=== PATIENT | male | born 1950 | race African-American/Black ===

== ENCOUNTER 2018-02-15 05:27 | Inpatient (IN) ==
[2018-02-14 11:34] LABS: Basophils % 0.5 % (0.0-0.8); Eosinophils # 0.3 10*3/uL (0.0-0.87); Eosinophils % 4.3 % (0.00-10.9); Hematocrit 44.1 VOL% (42.0-52.0); Hemoglobin 14.6 GM/DL (14.0-18.0); Immature Granulocytes % 0.7 %; Immature Granulocytes Absolute 0.04 #; Lymphocytes % 32.8 % (21.2-54.2); Mean Corpuscular HGB Conc 33.1 GM/DL (32-36); Mean Corpuscular Hemoglobin 29 PG (27-34); Mean Corpuscular Volume 88.4 FL (87-102); Mean Platelet Volume 9.6 FL (9.6-12.0); Monocytes # 0.4 10*3/uL (0.11-0.8); Monocytes % 6.2 % (1.7-12.7); Neutrophils # 3.3 10*3/uL (1.4-7.4); Neutrophils % 55.5 % (38.7-73.9); Platelet Count 238 T/CUMM (130-400); Red Blood Count 4.99 MC/CUMM (3.8-5.5); Red Cell Distribution Width 12.6 % (9.3-17.3)
[2018-02-14 11:39] LABS: Apearance,Urine CLEAR (Clear); Bilirubin,Urine Negative (Negative); Blood, Urine Negative (Negative); Glucose,Urine (UA) Negative (Negative); Ketones,Urine Negative (Negative); Mucus,Urine Occasional /LPF (Occasional); Nitrite,Urine Negative (Negative); Protein,Urine Negative; RBC,Urine 1 /HPF (0-4); Urine Color Straw (Yellow); Urine Specific Gravity 1.011 (1.001-1.035); Urine Urobilinogen < 2.0 EU/DL (0.2-1.0)
[2018-02-14 11:43] LABS: INR 0.9; PT Patient Result 9.9 SECS; Partial Thromboplastin Time 27.9 SECS (0-40)
[2018-02-14 12:04] LABS: Calcium 9.1 MG/DL (8.5-10.1); Osmolality,Calculated 286.1 MOS/KG (273-304); Potassium 4.6 MMOL/L (3.5-5.1)
[~2018-02-15 05:27] MED LIST: CEFUROXIME INJ 1,500 MG in SYRINGE 1 EACH IV ONE; PAPAVERINE 60 MG/2 ML VIAL ONE; SODIUM CHLORIDE 0.9% 1,000 ML IV PRN; TISSUE ADHESIVE 1 EACH APPLICATOR TOP ONE; VANCOMYCIN 1,000 MG VIAL ONE
[2018-02-15] MEDS ORDERED: MIDAZOLAM 10 MG/2 ML VIAL ONE ×2 (05:57)
[2018-02-15] MEDS ORDERED: SUFentanil 250 MCG/5 ML AMP ONE (05:57)
[2018-02-15] MEDS ORDERED: FAMOTIDINE 20 MG TABLET ONE (06:13)
[2018-02-15] MEDS ORDERED: DIAZEPAM 5 MG TABLET ONE (06:13)
[2018-02-15] MEDS ORDERED: FAMOTIDINE 20 MG TABLET PO STA (06:15)
[2018-02-15] MEDS ORDERED: DIAZEPAM 5 MG TABLET PO STA (06:15)
[2018-02-15] MEDS ORDERED: CEFUROXIME 1,500 MG VIAL ONE (06:23)
[2018-02-15] MEDS: LACTATED RINGERS 1,000 ML IV SCH (06:30)
[2018-02-15 07:48] LABS: ABG Base Excess 0.3 MMOL/L (-2.5-2.5); ABG HCO3 24.8 MMOL/L (20-26); ABG Oxygen Saturation 99.9 % (95-100); ABG PCO2 42.8 MM HG (35-48); ABG PH 7.384 (7.35-7.45); ABG TCO2 22.6 MMOL/L (23-27); Glucose Heart Surgery 134 MG/DL (74-106); Hematocrit Heart Surgery 37.9 PERCENT (42-52); Hemoglobin Heart Surgery 12.3 G/DL (14.0-18.0); PCO2 Patient Temp Arterial 44.5 MMHG; PH Patient Temp Arterial 7.373; Patient Temperature 100 CELCIUS; Potassium Heart/CVR 4.3 MMOL/L (3.5-5.1); Sodium Heart/CVR 139 MMOL/L (135-145)
[2018-02-15 08:19] LABS: Apearance,Urine CLEAR (Clear); Bilirubin,Urine Negative (Negative); Blood, Urine Negative (Negative); Glucose,Urine (UA) Negative (Negative); Ketones,Urine Negative (Negative); Mucus,Urine Occasional /LPF (Occasional); Nitrite,Urine Negative (Negative); Protein,Urine Negative; RBC,Urine <1 /HPF (0-4); Urine Color Straw (Yellow); Urine Specific Gravity 1.015 (1.001-1.035); Urine Urobilinogen < 2.0 EU/DL (0.2-1.0)
[2018-02-15 08:58] LABS: Hematocrit Heart Surgery 26.7 PERCENT (42-52); Hemoglobin Heart Surgery 8.6 G/DL (14.0-18.0); PCO2 Patient Temp Venous 35.3 MM HG; PH Patient Temp Venous 7.442; PO2 Patient Temp Venous 37.6 MM HG; Potassium Heart/CVR 4.9 MMOL/L (3.5-5.1); VBG Base Excess 0.3 MEQ/L (0-4); VBG HCO3 24.5 MEQ/L (24-28); VBG Oxygen Saturation 80.5 %; VBG PCO2 38.9 MMHG (41-51); VBG PH 7.412; VBG PO2 43.2 MMHG (17-40)
[2018-02-15 09:32] LABS: PCO2 Patient Temp Venous 37.8 MM HG; PH Patient Temp Venous 7.409; PO2 Patient Temp Venous 38.8 MM HG; Potassium Heart/CVR 4.9 MMOL/L (3.5-5.1); VBG Base Excess -0.5 MEQ/L (0-4); VBG HCO3 23.7 MEQ/L (24-28); VBG Oxygen Saturation 74.5 %; VBG PCO2 37.8 MMHG (41-51); VBG PH 7.409; VBG PO2 38.8 MMHG (17-40)
[2018-02-15 10:19] LABS: ABG Base Excess -1.2 MMOL/L (-2.5-2.5); ABG HCO3 23.5 MMOL/L (20-26); ABG Oxygen Saturation 99.7 % (95-100); ABG PCO2 39.6 MM HG (35-48); ABG PH 7.385 (7.35-7.45); ABG TCO2 21.6 MMOL/L (23-27); Glucose Heart Surgery 270 MG/DL (74-106); Hematocrit Heart Surgery 30.4 PERCENT (42-52); Hemoglobin Heart Surgery 9.8 G/DL (14.0-18.0); Ionized Calcium Arterial 1.32 MMOL/L (1.21-1.46); PCO2 Patient Temp Arterial 39.6 MMHG; PH Patient Temp Arterial 7.385; Patient Temperature 37 CELCIUS; Potassium Heart/CVR 4.4 MMOL/L (3.5-5.1); Sodium Heart/CVR 133 MMOL/L (135-145)
[2018-02-15] MEDS ORDERED: PROTAMINE SULFATE 250 MG/25 ML VIAL IV ONE (10:21)
[2018-02-15] MEDS ORDERED: MAGNESIUM SULFATE 10 GM/20 ML VIAL IV ONE (10:21)
[2018-02-15] MEDS ORDERED: ALBUMIN 25% 25 GM/100 ML VIAL IV ONE (10:21)
[2018-02-15] MEDS ORDERED: SODIUM BICARBONATE 50 MEQ/50 ML SYRINGE IV ONE (10:21)
[2018-02-15] MEDS ORDERED: DEXTROSE 5% KCL 20 MEQ 20 MEQ/1,000 ML BAG IV ONE (10:21)
[2018-02-15] MEDS ORDERED: FUROSEMIDE 20 MG/2 ML VIAL ONE (10:22)
[2018-02-15] MEDS ORDERED: MANNITOL 12.5 GM/50 ML VIAL IV ONE (10:22)
[2018-02-15] MEDS ORDERED: HEPARIN 10,000 UNIT/10 ML VIAL ONE (10:22)
[2018-02-15] MEDS ORDERED: methylPREDNISolone SOD SUC 1,000 MG/8 ML VIAL ONE (10:22)
[2018-02-15] MEDS ORDERED: POTASSIUM CHLORIDE RIDER 10 MEQ in PREMIX 1 EACH IV PRN (11:01)
[2018-02-15] MEDS ORDERED: ACETAMINOPHEN 650 MG SUPP RECTAL PRN (11:01)
[2018-02-15] MEDS ORDERED: ONDANSETRON 4 MG/2 ML VIAL IV PRN (11:01)
[2018-02-15] MEDS ORDERED: SODIUM CHLORIDE 0.9% 250 ML IV PRN (11:01)
[2018-02-15] MEDS ORDERED: DEXTROSE 50% 25 GM/50 ML SYRINGE IV PRN ×2 (11:01)
[2018-02-15] MEDS ORDERED: CALCIUM CHLORIDE 1,000 MG/10 ML SYRINGE IV PRN (11:01)
[2018-02-15] MEDS ORDERED: CHLORHEXIDINE 4% SOLN 118 ML BOTTLE TOP PRN (11:01)
[2018-02-15] MEDS ORDERED: MIDAZOLAM 2 MG/2 ML VIAL IV PRN (11:01)
[2018-02-15] MEDS ORDERED: MAGNESIUM SULF RIDER 4 GM in PREMIX 1 EACH IV PRN (11:01)
[2018-02-15] MEDS ORDERED: INSULIN REGULAR 100 UNIT/ML IV PRN (11:01)
[2018-02-15] MEDS ORDERED: MORPHINE 10 MG/1 ML VIAL IV PRN (11:01)
[2018-02-15] MEDS: SODIUM CHLORIDE 0.45% 1,000 ML IV SCH ×3 (11:15→23:56)
[2018-02-15] MEDS ORDERED: PROPOFOL 200 MG/20 ML VIAL IV ONE (11:16)
[2018-02-15] MEDS ORDERED: CALCIUM CHLORIDE 1,000 MG/10 ML VIAL IV ONE (11:16)
[2018-02-15] MEDS ORDERED: HEPARIN/NACL 0.9% 2 UNITS/ML 500 ML IV ONE (11:17)
[2018-02-15] MEDS ORDERED: VECURONIUM 10 MG VIAL IV ONE (11:17)
[2018-02-15] MEDS ORDERED: EPINEPHrine 1 MG/ML VIAL ONE (11:17)
[2018-02-15] MEDS ORDERED: ePHEDrine 50 MG/ML AMP ONE (11:17)
[2018-02-15] MEDS ORDERED: PHENYLEPHRINE DRIP 20 MG/250 ML PREMIX IV ONE (11:17)
[2018-02-15] MEDS ORDERED: LACTATED RINGERS 2,000 ML IV ONE (11:18)
[2018-02-15] MEDS ORDERED: ETOMIDATE 40 MG/20 ML VIAL IV ONE (11:18)
[2018-02-15] MEDS ORDERED: NITROGLYCERIN DRIP 50 MG/250 ML BOTTLE IV ONE (11:18)
[2018-02-15] MEDS ORDERED: SODIUM CHLORIDE 0.9% 1,000 ML IV ONE (11:18)
[2018-02-15] MEDS ORDERED: AMINOCAPROIC ACID 5,000 MG/20 ML VIAL IV ONE (11:18)
[2018-02-15] MEDS ORDERED: SODIUM CHLORIDE 0.9% 250 ML IV ONE (11:18)
[2018-02-15] MEDS ORDERED: SODIUM CHLORIDE 0.9% 100 ML IV ONE (11:18)
[2018-02-15] MEDS ORDERED: PROPOFOL 1,000 MG/100 ML BOTTLE IV ONE (11:18)
[2018-02-15] MEDS ORDERED: PROTAMINE SULFATE 50 MG/5 ML VIAL IV ONE ×2 (11:19→11:22)
[2018-02-15] MEDS ORDERED: SEVOFLURANE 1 UNIT/15 MINUTE INH ONE (11:19)
[2018-02-15] MEDS ORDERED: INSULIN REGULAR DRIP 100 ML IV SCH (11:30)
[2018-02-15 11:40] LABS: ABG Base Excess -2.5 MMOL/L (-2.5-2.5); ABG HCO3 22.3 MMOL/L (20-26); ABG Oxygen Saturation 97.5 % (95-100); ABG PCO2 37.8 MM HG (35-48); ABG PH 7.378 (7.35-7.45); ABG PO2 94.4 MM HG (80-95); ABG TCO2 20.2 MMOL/L (23-27); Glucose Heart Surgery 211 MG/DL (74-106); Hemoglobin Heart Surgery 10.3 G/DL (14.0-18.0); Potassium Heart/CVR 3.6 MMOL/L (3.5-5.1)
[2018-02-15 11:52] LABS: Basophils % 0.3 % (0.0-0.8); Eosinophils # 0.1 10*3/uL (0.0-0.87); Eosinophils % 0.8 % (0.00-10.9); Hematocrit 29.1 VOL% (42.0-52.0); Immature Granulocytes % 0.7 %; Immature Granulocytes Absolute 0.05 #; Lymphocytes # 0.8 10*3/uL (1.4-4.0); Lymphocytes % 11.7 % (21.2-54.2); Mean Corpuscular HGB Conc 33.3 GM/DL (32-36); Mean Corpuscular Hemoglobin 30 PG (27-34); Mean Corpuscular Volume 88.7 FL (87-102); Monocytes # 0.4 10*3/uL (0.11-0.8); Monocytes % 5.8 % (1.7-12.7); Neutrophils # 5.8 10*3/uL (1.4-7.4); Neutrophils % 80.7 % (38.7-73.9); Red Blood Count 3.28 MC/CUMM (3.8-5.5); Red Cell Distribution Width 12.7 % (9.3-17.3); White Blood Count 7.2 T/CUMM (4-12)
[2018-02-15 11:53] LABS: Hemoglobin 9.7 GM/DL (14.0-18.0); Platelet Count 162 T/CUMM (130-400)
[2018-02-15 11:56] LABS: PT Patient Result 11.1 SECS; Partial Thromboplastin Time 29.3 SECS (0-40)
[2018-02-15] MEDS ORDERED: LACTATED RINGERS 1,000 ML IV ONE ×3 (12:00→18:00)
[2018-02-15 12:08] LABS: Blood Urea Nitrogen 23 MG/DL (7-18); Calcium 8.1 MG/DL (8.5-10.1); Glucose 224 MG/DL (74-106); Osmolality,Calculated 293.1 MOS/KG (273-304); Potassium 3.8 MMOL/L (3.5-5.1); Sodium 142 MMOL/L (136-145)
[2018-02-15 12:15] LABS: Lactic Acid 4.7 MMOL/L (0.4-2.0)
[2018-02-15] MEDS ORDERED: SODIUM CHLORIDE 0.9% 1,000 ML IV PRN (12:39)
[2018-02-15] MEDS: ALBUMIN 5% 12.5 GM in PREMIX 1 EACH IV PRN ×5 (15:39→18:00)
[2018-02-15] MEDS ORDERED: ASPIRIN CHEW 81 MG TABLET PO ONE (16:23)
[2018-02-15 16:48] LABS: ABG Base Excess -1.2 MMOL/L (-2.5-2.5); ABG HCO3 23.4 MMOL/L (20-26); ABG Oxygen Saturation 95.6 % (95-100); ABG PCO2 44.6 MM HG (35-48); ABG PH 7.349 (7.35-7.45); ABG PO2 79.3 MM HG (80-95); ABG TCO2 22.5 MMOL/L (23-27); Glucose Heart Surgery 185 MG/DL (74-106); Hematocrit Heart Surgery 29.9 PERCENT (42-52); Hemoglobin Heart Surgery 9.7 G/DL (14.0-18.0); Potassium Heart/CVR 3.4 MMOL/L (3.5-5.1)
[2018-02-15] MEDS: POTASSIUM CHLORIDE RIDER 20 MEQ in PREMIX 1 EACH IV PRN ×3 (17:08→20:49)
[2018-02-15] MEDS ORDERED: PHENYLEPHRINE DRIP 40 MG/250 ML PREMIX IV ONE (18:27)
[2018-02-15] MEDS ORDERED: PHENYLEPHRINE DRIP 40 MG/250 ML PREMIX IV PRN (18:34)
[2018-02-15] MEDS: MORPHINE 4 MG/1 ML VIAL IV PRN ×2 (19:29→21:28)
[2018-02-15] MEDS: CEFUROXIME INJ 1,500 MG in SYRINGE 1 EACH IV SCH (20:23)
[2018-02-15] MEDS: CHLORHEXIDINE 0.12% ORAL RINSE 60 ML BOTTLE SWISH/SPIT SCH (20:26)
[2018-02-15] MEDS ORDERED: FUROSEMIDE 40 MG/4 ML VIAL IV ONE (21:00)
[2018-02-16] MEDS: SODIUM CHLORIDE 0.45% 1,000 ML IV SCH ×3 (00:49→14:21)
[2018-02-16 03:44] LABS: Basophils % 0.1 % (0.0-0.8); Hematocrit 25.4 VOL% (42.0-52.0); Hemoglobin 8.3 GM/DL (14.0-18.0); Immature Granulocytes % 0.5 %; Immature Granulocytes Absolute 0.08 #; Lymphocytes % 6.1 % (21.2-54.2); Mean Corpuscular HGB Conc 32.7 GM/DL (32-36); Mean Corpuscular Hemoglobin 30 PG (27-34); Mean Corpuscular Volume 90.4 FL (87-102); Mean Platelet Volume 10.7 FL (9.6-12.0); Monocytes # 0.7 10*3/uL (0.11-0.8); Monocytes % 4.3 % (1.7-12.7); Neutrophils # 14.2 10*3/uL (1.4-7.4); Platelet Count 255 T/CUMM (130-400); Red Blood Count 2.81 MC/CUMM (3.8-5.5); Red Cell Distribution Width 13.1 % (9.3-17.3)
[2018-02-16 04:00] LABS: Calcium 7.4 MG/DL (8.5-10.1); Osmolality,Calculated 284.4 MOS/KG (273-304); Potassium 4.1 MMOL/L (3.5-5.1)
[2018-02-16] MEDS: MAGNESIUM SULF RIDER 2 GM in PREMIX 1 EACH IV PRN ×2 (04:20→06:23)
[2018-02-16] MEDS: MORPHINE 4 MG/1 ML VIAL IV PRN ×3 (04:29→13:03)
[2018-02-16] MEDS: LACTATED RINGERS 1,000 ML IV SCH (06:03)
[2018-02-16] MEDS: CEFUROXIME INJ 1,500 MG in SYRINGE 1 EACH IV SCH ×2 (06:05→18:32)
[2018-02-16] MEDS: ALBUMIN 5% 12.5 GM in PREMIX 1 EACH IV PRN ×2 (06:15→08:47)
[2018-02-16] MEDS ORDERED: CALCIUM GLUCONATE 1,000 MG in SODIUM CHLORIDE 0.9% 100 ML IV ONE (06:53)
[2018-02-16] MEDS: INSULIN REGULAR 100 UNIT/ML SUBCUT SCH ×4 (07:52→21:05)
[2018-02-16] MEDS: PANTOPRAZOLE 40 MG VIAL IV SCH (08:53)
[2018-02-16] MEDS: ASPIRIN EC 325 MG TABLET PO SCH (09:59)
[2018-02-16] MEDS: FUROSEMIDE 40 MG TABLET PO SCH (09:59)
[2018-02-16] MEDS: CHLORHEXIDINE 0.12% ORAL RINSE 60 ML BOTTLE SWISH/SPIT SCH ×2 (10:02→21:05)
[2018-02-16 10:20] LABS: ABG HCO3 22.7 MMOL/L (20-26); ABG Oxygen Saturation 91.5 % (95-100); ABG PH 7.327 (7.35-7.45); ABG PO2 63.4 MM HG (80-95); ABG TCO2 22.3 MMOL/L (23-27); Glucose Heart Surgery 163 MG/DL (74-106); Hematocrit Heart Surgery 28.8 PERCENT (42-52); Hemoglobin Heart Surgery 9.3 G/DL (14.0-18.0); Potassium Heart/CVR 4.6 MMOL/L (3.5-5.1)
[2018-02-16] MEDS: ALBUTEROL/IPRATROPIUM 3 ML NEB RESP TX SCH ×4 (12:14→23:20)
[2018-02-16] MEDS: ATORVASTATIN 40 MG TABLET PO SCH (21:05)
[2018-02-17] MEDS: ALBUTEROL/IPRATROPIUM 3 ML NEB RESP TX SCH ×6 (03:14→23:33)
[2018-02-17] MEDS: INSULIN REGULAR 100 UNIT/ML SUBCUT SCH ×6 (03:53→20:40)
[2018-02-17] MEDS: SODIUM CHLORIDE 0.45% 1,000 ML IV SCH ×2 (03:53→03:54)
[2018-02-17 04:30] LABS: Basophils % 0.1 % (0.0-0.8); Hemoglobin 8.9 GM/DL (14.0-18.0); Immature Granulocytes % 1.3 %; Immature Granulocytes Absolute 0.15 #; Lymphocytes % 8.3 % (21.2-54.2); Mean Corpuscular Hemoglobin 30 PG (27-34); Mean Corpuscular Volume 89.7 FL (87-102); Mean Platelet Volume 10.5 FL (9.6-12.0); Monocytes # 0.9 10*3/uL (0.11-0.8); Monocytes % 7.2 % (1.7-12.7); Neutrophils % 83.1 % (38.7-73.9); Platelet Count 201 T/CUMM (130-400); Red Blood Count 3.01 MC/CUMM (3.8-5.5); Red Cell Distribution Width 13.2 % (9.3-17.3)
[2018-02-17 04:48] LABS: Osmolality,Calculated 285.5 MOS/KG (273-304); Potassium 4.2 MMOL/L (3.5-5.1)
[2018-02-17] MEDS: POTASSIUM CHLORIDE RIDER 20 MEQ in PREMIX 1 EACH IV PRN (05:47)
[2018-02-17] MEDS: LACTATED RINGERS 1,000 ML IV SCH (06:01)
[2018-02-17] MEDS: MORPHINE 4 MG/1 ML VIAL IV PRN (06:34)
[2018-02-17] MEDS: METOPROLOL TARTRATE 25 MG TABLET PO SCH ×2 (08:16→22:10)
[2018-02-17] MEDS: ALLOPURINOL 300 MG TABLET PO SCH (08:16)
[2018-02-17] MEDS: FUROSEMIDE 40 MG TABLET PO SCH (08:17)
[2018-02-17] MEDS: ASPIRIN EC 325 MG TABLET PO SCH (08:17)
[2018-02-17] MEDS: PANTOPRAZOLE 40 MG VIAL IV SCH (08:17)
[2018-02-17] MEDS: CHLORHEXIDINE 0.12% ORAL RINSE 60 ML BOTTLE SWISH/SPIT SCH ×2 (09:14→22:10)
[2018-02-17] MEDS ORDERED: SODIUM CHLORIDE 0.9% 1,000 ML IV SCH (19:00)
[2018-02-17 19:03] LABS: Basophils % 0.1 % (0.0-0.8); Hemoglobin 9.7 GM/DL (14.0-18.0); Immature Granulocytes Absolute 0.14 #; Lymphocytes # 1.3 10*3/uL (1.4-4.0); Lymphocytes % 9.1 % (21.2-54.2); Mean Corpuscular HGB Conc 33.4 GM/DL (32-36); Mean Corpuscular Hemoglobin 30 PG (27-34); Mean Corpuscular Volume 89.8 FL (87-102); Mean Platelet Volume 10.4 FL (9.6-12.0); Monocytes # 1.1 10*3/uL (0.11-0.8); Monocytes % 7.9 % (1.7-12.7); Neutrophils # 11.5 10*3/uL (1.4-7.4); Neutrophils % 81.9 % (38.7-73.9); Platelet Count 209 T/CUMM (130-400); Red Blood Count 3.23 MC/CUMM (3.8-5.5)
[2018-02-17 19:14] LABS: INR 0.9; PT Patient Result 10.1 SECS; Partial Thromboplastin Time 26.3 SECS (0-40)
[2018-02-17 19:24] LABS: Albumin 3.1 G/DL (3.4-5.0); Bilirubin,Total 0.4 MG/DL (0.2-1.0); Calcium 8.5 MG/DL (8.5-10.1); Osmolality,Calculated 286.5 MOS/KG (273-304); Total Protein 6.4 G/DL (6.4-8.3)
[2018-02-17] MEDS ORDERED: hydrALAZINE 20 MG/1 ML VIAL IV PRN (19:43)
[2018-02-17 19:58] LABS: Apearance,Urine CLEAR (Clear); Bilirubin,Urine Negative (Negative); Blood, Urine Large mg/dL (Negative); Glucose,Urine (UA) Negative (Negative); Ketones,Urine Negative (Negative); Nitrite,Urine Negative (Negative); Protein,Urine Negative; RBC,Urine 5 /HPF (0-4); Urine Color Yellow (Yellow); Urine Urobilinogen < 2.0 EU/DL (0.2-1.0); WBC,Urine 1 /HPF (0-6)
[2018-02-17] MEDS: ATORVASTATIN 40 MG TABLET PO SCH (22:09)
[2018-02-17] MEDS: ALFUZOSIN 10 MG TABLET PO SCH (22:10)
[2018-02-18] MEDS: ALBUTEROL/IPRATROPIUM 3 ML NEB RESP TX SCH ×5 (04:13→20:18)
[2018-02-18 05:24] LABS: Calcium 8.3 MG/DL (8.5-10.1); Osmolality,Calculated 287.3 MOS/KG (273-304); Potassium 4.3 MMOL/L (3.5-5.1)
[2018-02-18 05:48] LABS: Hematocrit 26.9 VOL% (42.0-52.0); Hemoglobin 8.8 GM/DL (14.0-18.0); Immature Granulocytes % 1.1 %; Immature Granulocytes Absolute 0.12 #; Lymphocytes # 1.3 10*3/uL (1.4-4.0); Lymphocytes % 12.1 % (21.2-54.2); Mean Corpuscular HGB Conc 32.7 GM/DL (32-36); Mean Corpuscular Hemoglobin 29 PG (27-34); Mean Platelet Volume 11.2 FL (9.6-12.0); Monocytes # 0.9 10*3/uL (0.11-0.8); Monocytes % 8.4 % (1.7-12.7); Neutrophils # 8.4 10*3/uL (1.4-7.4); Neutrophils % 78.4 % (38.7-73.9); Platelet Count 205 T/CUMM (130-400); Red Blood Count 2.99 MC/CUMM (3.8-5.5); Red Cell Distribution Width 12.8 % (9.3-17.3); White Blood Count 10.7 T/CUMM (4-12)
[2018-02-18] MEDS: INSULIN REGULAR 100 UNIT/ML SUBCUT SCH ×5 (06:16→21:49)
[2018-02-18] MEDS: ASPIRIN EC 325 MG TABLET PO SCH (10:20)
[2018-02-18] MEDS: FUROSEMIDE 40 MG TABLET PO SCH (10:20)
[2018-02-18] MEDS: METOPROLOL TARTRATE 25 MG TABLET PO SCH ×2 (10:22→21:48)
[2018-02-18] MEDS: PANTOPRAZOLE 40 MG VIAL IV SCH (10:23)
[2018-02-18] MEDS: CHLORHEXIDINE 0.12% ORAL RINSE 60 ML BOTTLE SWISH/SPIT SCH ×2 (10:25→21:49)
[2018-02-18] MEDS: ALLOPURINOL 300 MG TABLET PO SCH (10:25)
[2018-02-18] MEDS ORDERED: SODIUM CHLORIDE 0.9% 1,000 ML IV PRN (11:18)
[2018-02-18] MEDS ORDERED: FUROSEMIDE 40 MG/4 ML VIAL IV ONE (11:20)
[2018-02-18] MEDS: ATORVASTATIN 40 MG TABLET PO SCH (21:48)
[2018-02-18] MEDS: ALFUZOSIN 10 MG TABLET PO SCH (21:49)
[2018-02-19] MEDS: ALBUTEROL/IPRATROPIUM 3 ML NEB RESP TX SCH ×6 (00:17→20:22)
[2018-02-19] MEDS: INSULIN REGULAR 100 UNIT/ML SUBCUT SCH ×6 (01:45→22:18)
[2018-02-19 03:52] LABS: Basophils % 0.2 % (0.0-0.8); Eosinophils # 0.1 10*3/uL (0.0-0.87); Eosinophils % 0.6 % (0.00-10.9); Hematocrit 31.5 VOL% (42.0-52.0); Hemoglobin 10.5 GM/DL (14.0-18.0); Immature Granulocytes % 0.7 %; Immature Granulocytes Absolute 0.07 #; Lymphocytes # 2.2 10*3/uL (1.4-4.0); Lymphocytes % 21.7 % (21.2-54.2); Mean Corpuscular HGB Conc 33.3 GM/DL (32-36); Mean Corpuscular Hemoglobin 29 PG (27-34); Mean Corpuscular Volume 87.3 FL (87-102); Mean Platelet Volume 10.1 FL (9.6-12.0); Monocytes % 9.5 % (1.7-12.7); Neutrophils # 6.9 10*3/uL (1.4-7.4); Neutrophils % 67.3 % (38.7-73.9); Platelet Count 219 T/CUMM (130-400); Red Blood Count 3.61 MC/CUMM (3.8-5.5); Red Cell Distribution Width 12.8 % (9.3-17.3); White Blood Count 10.3 T/CUMM (4-12)
[2018-02-19 04:09] LABS: Calcium 8.6 MG/DL (8.5-10.1); Osmolality,Calculated 285.4 MOS/KG (273-304); Potassium 3.9 MMOL/L (3.5-5.1)
[2018-02-19] MEDS: POTASSIUM CHLORIDE RIDER 20 MEQ in PREMIX 1 EACH IV PRN (06:03)
[2018-02-19] MEDS: ASPIRIN EC 325 MG TABLET PO SCH (09:03)
[2018-02-19] MEDS: FUROSEMIDE 40 MG TABLET PO SCH (09:03)
[2018-02-19] MEDS: METOPROLOL TARTRATE 25 MG TABLET PO SCH ×2 (09:04→21:49)
[2018-02-19] MEDS: PANTOPRAZOLE 40 MG VIAL IV SCH (09:05)
[2018-02-19] MEDS: ALLOPURINOL 300 MG TABLET PO SCH (09:05)
[2018-02-19] MEDS: CHLORHEXIDINE 0.12% ORAL RINSE 60 ML BOTTLE SWISH/SPIT SCH ×2 (10:30→22:20)
[2018-02-19] MEDS: ATORVASTATIN 40 MG TABLET PO SCH (21:48)
[2018-02-19] MEDS: ALFUZOSIN 10 MG TABLET PO SCH (21:48)
[2018-02-20] MEDS: ALBUTEROL/IPRATROPIUM 3 ML NEB RESP TX SCH ×7 (00:27→23:01)
[2018-02-20] MEDS: MORPHINE 4 MG/1 ML VIAL IV PRN (04:40)
[2018-02-20] MEDS: FUROSEMIDE 40 MG TABLET PO SCH (09:32)
[2018-02-20] MEDS: ALLOPURINOL 300 MG TABLET PO SCH (09:32)
[2018-02-20] MEDS: METOPROLOL TARTRATE 25 MG TABLET PO SCH ×2 (09:33→21:14)
[2018-02-20] MEDS: ASPIRIN EC 325 MG TABLET PO SCH (09:34)
[2018-02-20] MEDS: INSULIN REGULAR 100 UNIT/ML SUBCUT SCH ×4 (09:34→21:25)
[2018-02-20] MEDS: PANTOPRAZOLE 40 MG VIAL IV SCH (09:34)
[2018-02-20] MEDS: CHLORHEXIDINE 0.12% ORAL RINSE 60 ML BOTTLE SWISH/SPIT SCH ×2 (09:34→21:16)
[2018-02-20] MEDS: ATORVASTATIN 40 MG TABLET PO SCH (21:16)
[2018-02-20] MEDS: ALFUZOSIN 10 MG TABLET PO SCH (21:16)
[2018-02-21] MEDS: ALBUTEROL/IPRATROPIUM 3 ML NEB RESP TX SCH ×6 (03:51→23:21)
[2018-02-21] MEDS: FUROSEMIDE 40 MG TABLET PO SCH (09:37)
[2018-02-21] MEDS: METOPROLOL TARTRATE 25 MG TABLET PO SCH ×2 (09:38→21:19)
[2018-02-21] MEDS: PANTOPRAZOLE 40 MG VIAL IV SCH (09:38)
[2018-02-21] MEDS: ASPIRIN EC 325 MG TABLET PO SCH (09:38)
[2018-02-21] MEDS: ALLOPURINOL 300 MG TABLET PO SCH (09:38)
[2018-02-21] MEDS: INSULIN REGULAR 100 UNIT/ML SUBCUT SCH ×4 (09:39→21:18)
[2018-02-21] MEDS: CHLORHEXIDINE 0.12% ORAL RINSE 60 ML BOTTLE SWISH/SPIT SCH ×2 (10:10→21:19)
[2018-02-21] MEDS: ATORVASTATIN 40 MG TABLET PO SCH (21:18)
[2018-02-21] MEDS: ALFUZOSIN 10 MG TABLET PO SCH (21:19)
[2018-02-22] MEDS: ALBUTEROL/IPRATROPIUM 3 ML NEB RESP TX SCH ×5 (03:43→20:00)
[2018-02-22] MEDS: PANTOPRAZOLE 40 MG VIAL IV SCH (08:50)
[2018-02-22] MEDS: FUROSEMIDE 40 MG TABLET PO SCH (08:50)
[2018-02-22] MEDS: ASPIRIN EC 325 MG TABLET PO SCH (08:51)
[2018-02-22] MEDS: METOPROLOL TARTRATE 25 MG TABLET PO SCH ×2 (08:51→22:13)
[2018-02-22] MEDS: ALLOPURINOL 300 MG TABLET PO SCH (08:51)
[2018-02-22] MEDS: INSULIN REGULAR 100 UNIT/ML SUBCUT SCH ×4 (08:53→21:26)
[2018-02-22] MEDS: CHLORHEXIDINE 0.12% ORAL RINSE 60 ML BOTTLE SWISH/SPIT SCH ×2 (08:57→22:13)
[2018-02-22] MEDS: ALFUZOSIN 10 MG TABLET PO SCH (22:13)
[2018-02-22] MEDS: ATORVASTATIN 40 MG TABLET PO SCH (22:13)
[2018-02-23] MEDS: ALBUTEROL/IPRATROPIUM 3 ML NEB RESP TX SCH ×3 (00:08→07:43)
[2018-02-23] MEDS: PANTOPRAZOLE 40 MG VIAL IV SCH (09:22)
[2018-02-23] MEDS: METOPROLOL TARTRATE 25 MG TABLET PO SCH (09:40)
[2018-02-23] MEDS: FUROSEMIDE 40 MG TABLET PO SCH (09:40)
[2018-02-23] MEDS: ASPIRIN EC 325 MG TABLET PO SCH (09:40)
[2018-02-23] MEDS: ALLOPURINOL 300 MG TABLET PO SCH (09:40)
[2018-02-23] MEDS: INSULIN REGULAR 100 UNIT/ML SUBCUT SCH (09:41)
[2018-02-23] MEDS: CHLORHEXIDINE 0.12% ORAL RINSE 60 ML BOTTLE SWISH/SPIT SCH (09:41)
[2018-02-23 12:06] VITALS: BP 122/57
== END 2018-02-23 12:01 | disposition home health service (06) | DRG 235 ==
LOC: N.SDSINP 05:27 → N.CVR 08:10 → N.ICU 02-16 11:32 → N.TELES 02-17 14:43 → N.ICU 02-17 19:08 → N.TELES 02-19 13:22
PROVIDERS: ADMIT Thoracic Surgery (Cardiothoracic Vascular Surgery); ATTEND Thoracic Surgery (Cardiothoracic Vascular Surgery)

== ENCOUNTER 2018-09-15 13:11 | Observation (INO) ==
[2018-09-15] MEDS ORDERED: ONDANSETRON 4 MG/2 ML VIAL IV STA (14:29)
[2018-09-15] MEDS ORDERED: LACTATED RINGERS 1,000 ML IV STA (14:29)
[2018-09-15] MEDS ORDERED: MORPHINE 4 MG/1 ML VIAL IV STA (14:29)
[2018-09-15] MEDS ORDERED: MORPHINE 4 MG/1 ML VIAL IV PRN ×2 (15:06)
[2018-09-15] MEDS ORDERED: ONDANSETRON 4 MG/2 ML VIAL IV PRN (15:06)
[2018-09-15] MEDS ORDERED: BISACODYL 5 MG TABLET PO PRN (15:06)
[2018-09-15] MEDS ORDERED: KETOROLAC 10 MG TABLET PO PRN (15:06)
[2018-09-15] MEDS ORDERED: ACETAMINOPHEN 325 MG TABLET PO PRN (15:06)
[2018-09-15 15:38] LABS: Basophils % 0.3 % (0.0-0.8); Eosinophils # 0.1 10*3/uL (0.0-0.87); Eosinophils % 0.7 % (0.00-10.9); Hematocrit 43.1 VOL% (42.0-52.0); Hemoglobin 14.1 GM/DL (14.0-18.0); Immature Granulocytes % 0.5 %; Immature Granulocytes Absolute 0.06 #; Lymphocytes # 1.4 10*3/uL (1.4-4.0); Lymphocytes % 12.5 % (21.2-54.2); Mean Corpuscular HGB Conc 32.7 GM/DL (32-36); Mean Corpuscular Volume 89.6 FL (87-102); Monocytes % 6.6 % (1.7-12.7); Neutrophils % 79.4 % (38.7-73.9); Platelet Count 193 T/CUMM (130-400); Red Blood Count 4.81 MC/CUMM (3.8-5.5); Red Cell Distribution Width 13.6 % (9.3-17.3); White Blood Count 11.2 T/CUMM (4-12)
[2018-09-15 15:46] LABS: INR 0.9
[2018-09-15 15:49] LABS: Bilirubin,Total 0.5 MG/DL (0.2-1.0); Calcium 9.1 MG/DL (8.5-10.1); Osmolality,Calculated 292.8 MOS/KG (273-304); Total Protein 7.4 G/DL (6.4-8.3)
[2018-09-15 16:08] LABS: Apearance,Urine CLEAR (Clear); Bilirubin,Urine Negative (Negative); Blood, Urine Negative (Negative); Glucose,Urine (UA) Negative (Negative); Hyaline Casts,Urine 4 /LPF (0-3); Ketones,Urine Negative (Negative); Mucus,Urine Few /LPF (Occasional); Nitrite,Urine Negative (Negative); Protein,Urine 30 MG/DL; RBC,Urine <1 /HPF (0-4); Squamous Epithelial Cell,Urine Occasional /HPF (0-10); Urine Color Yellow (Yellow); Urine Specific Gravity 1.024 (1.001-1.035); Urine Urobilinogen < 2.0 EU/DL (0.2-1.0); WBC,Urine 1 /HPF (0-6)
[2018-09-15] MEDS ORDERED: ALLOPURINOL 100 MG TABLET PO SCH (21:00)
[2018-09-15] MEDS: ALFUZOSIN 10 MG TABLET PO SCH (21:28)
[2018-09-16 05:39] LABS: Basophils % 0.3 % (0.0-0.8); Eosinophils # 0.2 10*3/uL (0.0-0.87); Eosinophils % 2.5 % (0.00-10.9); Hematocrit 38.4 VOL% (42.0-52.0); Hemoglobin 12.2 GM/DL (14.0-18.0); Immature Granulocytes % 0.4 %; Immature Granulocytes Absolute 0.03 #; Lymphocytes # 2.2 10*3/uL (1.4-4.0); Lymphocytes % 31.7 % (21.2-54.2); Mean Corpuscular HGB Conc 31.8 GM/DL (32-36); Mean Corpuscular Volume 91.6 FL (87-102); Mean Platelet Volume 10.1 FL (9.6-12.0); Monocytes % 8.7 % (1.7-12.7); Neutrophils % 56.4 % (38.7-73.9); Platelet Count 168 T/CUMM (130-400); Red Blood Count 4.19 MC/CUMM (3.8-5.5); Red Cell Distribution Width 13.6 % (9.3-17.3); White Blood Count 6.8 T/CUMM (4-12)
[2018-09-16 05:45] LABS: Albumin 3.4 G/DL (3.4-5.0); Bilirubin,Total 0.6 MG/DL (0.2-1.0); Calcium 8.8 MG/DL (8.5-10.1); Osmolality,Calculated 289.1 MOS/KG (273-304); Total Protein 6.1 G/DL (6.4-8.3)
[2018-09-16] MEDS ORDERED: PANTOPRAZOLE 40 MG TABLET PO SCH (09:00)
[2018-09-16] MEDS ORDERED: LOSARTAN 25 MG TABLET PO SCH (09:00)
[2018-09-16] MEDS ORDERED: ASPIRIN EC 81 MG TABLET PO SCH (09:00)
[2018-09-16] MEDS: ALFUZOSIN 10 MG TABLET PO SCH ×2 (09:33→09:37)
[2018-09-16 11:11] VITALS: BP 122/68
== END 2018-09-16 13:25 | disposition home or self-care (01) ==
LOC: N.3E 13:11 → N.ED 13:11 → N.3E 17:00
PROVIDERS: ADMIT Surgery; ATTEND Surgery

== ENCOUNTER 2020-07-15 12:41 | Inpatient (IN) ==
[2020-07-15 16:15] LABS: Basophils % 0.4 % (0.0-0.8); Eosinophils # 0.1 10*3/uL (0.0-0.87); Eosinophils % 0.9 % (0.00-10.9); Hematocrit 43.3 VOL% (42.0-52.0); Hemoglobin 14.6 GM/DL (14.0-18.0); Immature Granulocytes % 0.6 %; Immature Granulocytes Absolute 0.06 #; Lymphocytes # 1.2 10*3/uL (1.4-4.0); Lymphocytes % 11.7 % (21.2-54.2); Mean Corpuscular HGB Conc 33.7 GM/DL (32-36); Mean Corpuscular Volume 91.4 FL (87-102); Mean Platelet Volume 11.6 FL (9.6-12.0); Monocytes % 6.3 % (1.7-12.7); Neutrophils % 80.1 % (38.7-73.9); Platelet Count 225 T/CUMM (130-400); Red Blood Count 4.74 MC/CUMM (3.8-5.5); Red Cell Distribution Width 13.3 % (9.3-17.3); White Blood Count 9.9 T/CUMM (4-12)
[2020-07-15 17:57] LABS: Albumin 3.8 G/DL (3.4-5.0); Bilirubin,Total 0.7 MG/DL (0.2-1.0); Calcium 9.1 MG/DL (8.5-10.1); Osmolality,Calculated 283.3 MOS/KG (273-304); Potassium 4.2 MMOL/L (3.5-5.1); Total Protein 6.8 G/DL (6.4-8.2)
[2020-07-15] MEDS ORDERED: SODIUM CHLORIDE 0.9% 500 ML IV STA ×2 (18:02→18:38)
[2020-07-15 18:18] LABS: Bilirubin,Urine Negative (Negative); Blood, Urine Negative (Negative); Glucose,Urine (UA) Negative (Negative); Ketones,Urine Negative (Negative); Mucus,Urine Occasional /LPF (Occasional); Nitrite,Urine Negative (Negative); Protein,Urine Negative; RBC,Urine 2 /HPF (0-4); Urine Appearance CLEAR (Clear); Urine Color Yellow (Yellow); Urine Specific Gravity 1.014 (1.001-1.035); Urine Urobilinogen < 2.0 EU/DL (0.2-1.0)
[2020-07-15] MEDS ORDERED: GLUCAGON 1 MG VIAL IM PRN (19:00)
[2020-07-15] MEDS ORDERED: MAGNESIUM SULF RIDER 2 GM/50 ML PREMIX IV PRN (19:00)
[2020-07-15] MEDS ORDERED: ONDANSETRON 4 MG/2 ML VIAL IV PRN (19:00)
[2020-07-15] MEDS ORDERED: ENOXAPARIN 40 MG/0.4 ML SYRINGE SUBCUT SCH (19:00)
[2020-07-15] MEDS ORDERED: DEXTROSE 50% 25 GM/50 ML VIAL IV PRN (19:00)
[2020-07-15] MEDS ORDERED: MAGNESIUM SULF RIDER 4 GM/100 ML PREMIX IV PRN (19:00)
[2020-07-15 19:44] LABS: Hepatitis B Core IgM Quant 0.07 Index; Hepatitis B Surface Ag Quant < 0.10 Index; Hepatitis B Surface Ag Result Non-Reactive (NonReactive); Hepatitis C Virus Ab Result Non-Reactive (NonReactive)
[2020-07-15] MEDS ORDERED: PIPERACILLIN/TAZOBACTAM 3,375 MG in SODIUM CHLORIDE 0.9% 100 ML IV STA (19:45)
[2020-07-15] MEDS ORDERED: PIPERACILLIN/TAZOBACTAM 3,375 MG VIAL IV ONE (19:54)
[2020-07-15] MEDS: INSULIN LISPRO 100 UNIT/ML SUBCUT SCH (22:12)
[2020-07-15] MEDS: PIPERACILLIN/TAZOBACTAM 3,375 MG in SODIUM CHLORIDE 0.9% 100 ML IV SCH (22:13)
[2020-07-15] MEDS: SODIUM CHLORIDE 0.45% 1,000 ML IV SCH (22:50)
[2020-07-16] MEDS: PIPERACILLIN/TAZOBACTAM 3,375 MG in SODIUM CHLORIDE 0.9% 100 ML IV SCH ×3 (03:54→20:34)
[2020-07-16 05:20] LABS: Basophils % 0.4 % (0.0-0.8); Eosinophils # 0.2 10*3/uL (0.0-0.87); Hematocrit 37.9 VOL% (42.0-52.0); Hemoglobin 12.6 GM/DL (14.0-18.0); Immature Granulocytes % 0.4 %; Immature Granulocytes Absolute 0.03 #; Lymphocytes # 1.8 10*3/uL (1.4-4.0); Lymphocytes % 25.3 % (21.2-54.2); Mean Corpuscular HGB Conc 33.2 GM/DL (32-36); Mean Corpuscular Volume 91.1 FL (87-102); Mean Platelet Volume 10.2 FL (9.6-12.0); Monocytes % 9.2 % (1.7-12.7); Neutrophils % 61.7 % (38.7-73.9); Platelet Count 199 T/CUMM (130-400); Red Blood Count 4.16 MC/CUMM (3.8-5.5); Red Cell Distribution Width 13.2 % (9.3-17.3); White Blood Count 7.3 T/CUMM (4-12)
[2020-07-16 05:56] LABS: Bilirubin,Total 0.6 MG/DL (0.2-1.0); Calcium 8.2 MG/DL (8.5-10.1); Osmolality,Calculated 281.3 MOS/KG (273-304); Potassium 3.8 MMOL/L (3.5-5.1); Total Protein 5.9 G/DL (6.4-8.2)
[2020-07-16] MEDS: INSULIN LISPRO 100 UNIT/ML SUBCUT SCH ×4 (07:30→20:36)
[2020-07-16] MEDS: SODIUM CHLORIDE 0.45% 1,000 ML IV SCH ×3 (09:26→16:08)
[2020-07-16] MEDS: PANTOPRAZOLE 40 MG VIAL IV SCH (09:28)
[2020-07-16] MEDS ORDERED: hydrALAZINE 20 MG/1 ML VIAL IV PRN (10:51)
[2020-07-17] MEDS: PIPERACILLIN/TAZOBACTAM 3,375 MG in SODIUM CHLORIDE 0.9% 100 ML IV SCH ×3 (04:12→20:00)
[2020-07-17 05:48] LABS: Basophils % 0.6 % (0.0-0.8); Eosinophils # 0.3 10*3/uL (0.0-0.87); Eosinophils % 4.1 % (0.00-10.9); Hematocrit 36.3 VOL% (42.0-52.0); Hemoglobin 12.3 GM/DL (14.0-18.0); Immature Granulocytes % 0.5 %; Immature Granulocytes Absolute 0.03 #; Lymphocytes # 1.5 10*3/uL (1.4-4.0); Lymphocytes % 23.2 % (21.2-54.2); Mean Corpuscular HGB Conc 33.9 GM/DL (32-36); Mean Platelet Volume 10.1 FL (9.6-12.0); Monocytes % 8.7 % (1.7-12.7); Neutrophils % 62.9 % (38.7-73.9); Platelet Count 198 T/CUMM (130-400); Red Blood Count 4.08 MC/CUMM (3.8-5.5); Red Cell Distribution Width 13.1 % (9.3-17.3); White Blood Count 6.6 T/CUMM (4-12)
[2020-07-17 06:16] LABS: Albumin 2.9 G/DL (3.4-5.0); Bilirubin,Total 0.9 MG/DL (0.2-1.0); Calcium 8.7 MG/DL (8.5-10.1); Osmolality,Calculated 281.1 MOS/KG (273-304); Potassium 3.9 MMOL/L (3.5-5.1); Total Protein 5.9 G/DL (6.4-8.2)
[2020-07-17] MEDS: INSULIN LISPRO 100 UNIT/ML SUBCUT SCH ×4 (07:57→20:05)
[2020-07-17] MEDS: PANTOPRAZOLE 40 MG VIAL IV SCH (09:23)
[2020-07-17] MEDS ORDERED: BUPIVACAINE MPF 0.25% 30 ML VIAL ONE (11:00)
[2020-07-17] MEDS ORDERED: LIDOCAINE 1% 20 ML VIAL ONE (11:00)
[2020-07-17] MEDS ORDERED: TISSUE ADHESIVE 1 EACH APPLICATOR TOP ONE (11:01)
[2020-07-17] MEDS ORDERED: LIDOCAINE 2% 5 ML VIAL ONE (11:24)
[2020-07-17] MEDS ORDERED: ONDANSETRON 4 MG/2 ML VIAL ONE (11:24)
[2020-07-17] MEDS ORDERED: ROCURONIUM 50 MG/5 ML VIAL IV ONE (11:24)
[2020-07-17] MEDS ORDERED: ETOMIDATE 40 MG/20 ML VIAL IV ONE (11:24)
[2020-07-17] MEDS ORDERED: MIDAZOLAM 2 MG/2 ML VIAL ONE (11:24)
[2020-07-17] MEDS ORDERED: PHENYLEPHRINE 1 MG/10 ML SYRINGE IV ONE (11:24)
[2020-07-17] MEDS ORDERED: fentaNYL 100 MCG/2 ML VIAL ONE ×3 (11:24→12:34)
[2020-07-17] MEDS ORDERED: SEVOFLURANE 1 UNIT/15 MINUTE INH ONE (11:24)
[2020-07-17] MEDS ORDERED: propofoL 200 MG/20 ML VIAL IV ONE (11:24)
[2020-07-17] MEDS ORDERED: SUGAMMADEX 200 MG/2 ML VIAL IV ONE (12:31)
[2020-07-17] MEDS ORDERED: LACTATED RINGERS 1,000 ML IV ONE (12:33)
[2020-07-17] MEDS: HYDROmorphone 2 MG/1 ML VIAL IV PRN ×2 (14:00→19:59)
[2020-07-18] MEDS: PIPERACILLIN/TAZOBACTAM 3,375 MG in SODIUM CHLORIDE 0.9% 100 ML IV SCH (04:09)
[2020-07-18 06:35] LABS: Basophils % 0.2 % (0.0-0.8); Eosinophils # 0.1 10*3/uL (0.0-0.87); Eosinophils % 0.7 % (0.00-10.9); Hematocrit 37.8 VOL% (42.0-52.0); Hemoglobin 13.1 GM/DL (14.0-18.0); Immature Granulocytes % 0.5 %; Immature Granulocytes Absolute 0.04 #; Lymphocytes # 0.6 10*3/uL (1.4-4.0); Mean Corpuscular HGB Conc 34.7 GM/DL (32-36); Mean Corpuscular Volume 88.5 FL (87-102); Mean Platelet Volume 10.2 FL (9.6-12.0); Monocytes % 7.3 % (1.7-12.7); Neutrophils % 84.3 % (38.7-73.9); Platelet Count 171 T/CUMM (130-400); Red Blood Count 4.27 MC/CUMM (3.8-5.5); Red Cell Distribution Width 13.1 % (9.3-17.3); White Blood Count 8.7 T/CUMM (4-12)
[2020-07-18 06:56] LABS: Bilirubin,Total 1.2 MG/DL (0.2-1.0); Calcium 8.3 MG/DL (8.5-10.1); Osmolality,Calculated 276.5 MOS/KG (273-304); Potassium 3.8 MMOL/L (3.5-5.1); Total Protein 6.2 G/DL (6.4-8.2)
[2020-07-18] MEDS: INSULIN LISPRO 100 UNIT/ML SUBCUT SCH ×2 (07:15→11:36)
[2020-07-18] MEDS: PANTOPRAZOLE 40 MG VIAL IV SCH (08:32)
[2020-07-18 11:44] VITALS: BP 121/57
== END 2020-07-18 14:19 | disposition home or self-care (01) | DRG 418 ==
LOC: N.ED 12:41 → N.EDINP 19:00 → SUATTDRO 19:00 → N.3E 21:33 → N.EDINP 21:33
PROVIDERS: ADMIT Internal Medicine; ATTEND Internal Medicine
PROC: LAPCHOL (2020-07-17 11:35)